=== PATIENT | male | born 1980 | race Caucasian/White ===

== ENCOUNTER 2016-12-08 13:51 | Emergency (ER) | payer OTHER ==
--- NOTE | 2016-12-08 14:58 | RAD ---
CHEST - 2 VIEWS COMPARISON: Chest CT without contrast, 05/27/2014. Chest 2 views, 07/30/2013 HISTORY: Right upper chest pain. FINDINGS: Views: Frontal and lateral chest Lungs: Normal Heart and vessels: Normal Trachea and bronchi: Normal Mediastinum and rajiv: Normal Costophrenic sulci: Normal Chest wall and bones: Normal. Upper abdomen: Normal. IMPRESSION: Negative 2 view chest.
== END 2016-12-08 16:26 | disposition home or self-care (01) ==
LOC: ED 13:51
DX: R07.9 Chest pain, unspecified (principal); Z87.891 Personal history of nicotine dependence